=== PATIENT | female | born 1990 | race Caucasian/White ===

== ENCOUNTER → 2017-03-27 | Outpatient (CLI) | payer OTHER ==
--- NOTE | 2017-03-27 11:24 | US ---
EXAMINATION TYPE: US OB <= 14 wk fetus DATE OF EXAM: 03/27/2017 COMPARISON: NONE CLINICAL HISTORY: Z36 Confirm dates. EXAM PERFORMED: Transabdominal (TA) EXAM MEASUREMENTS: GESTATIONAL AGE / DATING Physician Established: not established Dates by LMP: uncertain lmp Dates by First Scan: no previous scan Dates by Current Scan for: ( 9 weeks/3 days) EDC: 10/27/2017 MATERNAL ANATOMY Uterus: 15.5 x 6.8 x 7.8cm, anteverted, wnl Right Ovary: 3.8 x 2.1 x 2.5cm, wnl Left Ovary: 4.0 x 2.1 x 2.0cm, wnl Post CDS / Adnexa: wnl Presence of free fluid: none seen GESTATION / SURVEY CRL: 2.6cm (9 weeks/3 days) MSD: wnl Yolk Sac (normal less than 6mm): 4mm Heart Rate: 169 bpm Rhythm: Normal IUP: Viable IUP IMPRESSION: Single viable intrauterine .
[2017-03-27 11:55] LABS: Glucose 78 mg/dL (74-99); Non-African American GFR(MDRD) >60 (>60 ml/min/1.73 sqM)
[2017-03-27 12:04] LABS: CH 26.8; CHCM 32.5; HCT 36.8 % (34.0-46.0); HDW 2.25; HGB 12.2 gm/dL (11.4-16.0); MCH 27.6 pg (25.0-35.0); MCHC 33.2 g/dL (31.0-37.0); RBC 4.43 m/uL (3.80-5.40); RDW 14.2 % (11.5-15.5); WBC 10.5 k/uL (3.8-10.6)
[2017-03-27 12:25] LABS: Hepatitis B Surface Ag Index 0.06
[2017-03-27 15:49] LABS: Treponemal Ab Non-Reactive (Non-Reactive)
== END | disposition home or self-care (01) ==
LOC: RADUSWWP 10:53
PROVIDERS: ATTEND Obstetrics & Gynecology
DX: Z36 Encounter for antenatal screening of mother (principal); O26.811 Pregnancy related exhaustion and fatigue, first trimester; Z3A.09 9 weeks gestation of pregnancy
CPT/HCPCS: 76801; 82565; 82947; 85027; 86762; 86780; 86850; 86900; 86901; 87340; 87390

== ENCOUNTER → 2017-05-22 | Outpatient (CLI) | payer OTHER ==
[2017-05-23 09:23] LABS: Alpha Fetoprotein 29.6 ng/mL; Alpha Fetoprotein (M.O.M) 0.64; B-HCG (M.O.M.) 0.46; Gestational Age (days) 0; Inhibin A (M.O.M.) 0.76; Interpretation SeeBelow; Maternal Age at EDD (Yrs) 25; Smoker No; Unconjugated Estriol (M.O.M.) 0.75
== END | disposition home or self-care (01) ==
LOC: LABWHC1 11:05
PROVIDERS: ATTEND Obstetrics & Gynecology
DX: Z34.82 Encounter for supervision of other normal pregnancy, second trimester (principal); Z3A.00 Weeks of gestation of pregnancy not specified
CPT/HCPCS: 36415; 82105; 82677; 84702; 86336

== ENCOUNTER 2017-07-20 21:38 | Observation (INO) | payer OTHER ==
[2017-07-20 22:49] LABS: Appearance,Urine Cloudy (Clear); Bacteria,Urine Occasional /hpf; Bilirubin,Urine Negative (Negative); Glucose,Urine (UA) Negative (Negative); Ketones,Urine Negative (Negative); Leukocyte Esterase,Urine Large (Negative); Mucus,Urine Rare /hpf; Nitrite,Urine Negative (Negative); PH, Urine 5.5 (5.0-8.0); Particle Count 5862; Protein,Urine 1+ (Negative); RBC,Urine 7 /hpf (0-5); Specific Gravity,Urine 1.015 (1.001-1.035); Squamous Epithelial Cell,Urine 1 /hpf (0-4); UA Billing (MACRO vs. MICRO) MICRO; Urobilinogen,Urine <2.0 mg/dL (<2.0); WBC,Urine 134 /hpf (0-5)
[2017-07-20] MEDS ORDERED: ACETAMINOPHEN TAB 500 MG TAB PO PRN (23:15)
[2017-07-21] MEDS ORDERED: cefTRIAXone IN SWFI 1,000 MG/10 ML SYRINGE IVP SCH
[2017-07-21 00:55] VITALS: TEMP 97.5
[2017-07-21 01:24] LABS: Basophils # (A) 0.1 k/uL (0-0.2); Basophils % (A) 0 %; CH 26.4; CHCM 31.3; Eosinophils # (A) 0.2 k/uL (0-0.7); Eosinophils % (A) 2 %; HCT 35.3 % (34.0-46.0); HDW 2.81; Hypochromasia Slight; Luc # (Auto) 0.13; Luc % (Auto) 1; Lymphocytes % (A) 15 %; MCH 26.6 pg (25.0-35.0); MCHC 31.2 g/dL (31.0-37.0); MCV 85.1 fL (80.0-100.0); Mean Platelet Volume 7.8; Monocytes # (A) 0.9 k/uL (0-1.0); Monocytes % (A) 7 %; Neutrophils # (A) 10.2 k/uL (1.3-7.7); Neutrophils % (A) 76 %; RBC 4.15 m/uL (3.80-5.40); RDW 14.9 % (11.5-15.5); WBC 13.5 k/uL (3.8-10.6); WBC (Perox) 14.82
[2017-07-21 03:41] VITALS: BP 102/54; PULSE 94; RESP 14
--- NOTE | 2017-07-21 13:00 | P.HPOB ---
History of Present Illness H&P Date: 07/21/17 Chief Complaint: iup 26 weeks UTI vs Pyelonephritis Patient is a 27-year-old arriving with complaint of back pain. Urinalysis was done showing white blood cells and clumps significant blood and early indicators for early pyelonephritis. She received 1 dose of IV Rocephin and will be switched over to by mouth meds tomorrow. We're admitting her for observational care due to potential early pyelonephritis white blood cell count was mildly elevated at 13.5 and my concern is that I need to make sure that she isn't on her way to getting much sicker so we'll keep her overnight and if everything remained stable plan to discharge her to home. She voices no complaints of fever chills nausea or vomiting or other signs or symptoms and she has other than just low back pain no other symptoms. Vital signs otherwise stable and she is afebrile. Heart regular, lungs clear, extremities without pain. No costovertebral angle tenderness at this time. Assessment intrauterine at 26 weeks with UTI versus early [place]. Plan IV antibiotics today with expectation for discharged home on long-term antibiotics. Due to this being her potentially second pyelonephritis infection during the she may need IV antibiotics prophylactically through the remainder of the . We will have her follow up with Dr. Villanueva for this moving forward Past Medical History Past Medical History: No Reported History History of Any Multi-Drug Resistant Organisms: None Reported Past Surgical History: Appendectomy Additional Past Surgical History / Comment(s): Appy Past Anesthesia/Blood Transfusion Reactions: No Reported Reaction Past Psychological History: No Psychological Hx Reported Smoking Status: Never smoker Past Alcohol Use History: None Reported Past Drug Use History: None Reported - Past Family History Mother Family Medical History: Hypertension Son(s) Family Medical History: Seizure Disorder Medications and Allergies Home Medications Medication Instructions Recorded Confirmed Type Acetaminophen-Codeine 300-30mg 1 - 2 each PO Q4HR PRN #30 tab 09/22/15 Rx [Tylenol w/codeine #3] Ibuprofen [Motrin] 600 mg PO Q6HR PRN #40 tab 09/22/15 Rx Cephalexin [Keflex] 500 mg PO Q6HR #40 cap 07/21/17 Rx Allergies Allergy/AdvReac Type Severity Reaction Status Date / Time Penicillins Allergy Rash/Hives Verified 07/20/17 21:39 amoxicillin [Amoxicillin] AdvReac Rash/Hives Verified 07/20/17 21:39 Exam Osteopathic Statement: *. No significant issues noted on an osteopathic structural exam other than those noted in the History and Physical/Consult. - Vital Signs Vital signs: Vital Signs Temp Pulse Resp BP Pulse Ox 07/21/17 03:41 97.5 F L 94 14 102/54 07/21/17 00:05 97.5 F L 81 16 109/57 100 07/20/17 23:00 96.7 F L 81 16 119/78 Intake and Output 07/20/17 07/21/17 07/21/17 22:59 06:59 14:59 Other: Voiding Method Toilet Weight 63.503 kg Results Result Diagrams: 07/21/17 00:01 Abnormal Lab Results - Last 24 Hours (Table) 07/20/17 07/21/17 Range/Units 22:22 00:01 WBC 13.5 H (3.8-10.6) k/uL Hgb 11.0 L (11.4-16.0) gm/dL Neutrophils # 10.2 H (1.3-7.7) k/uL Urine Appearance Cloudy H (Clear) Urine Protein 1+ H (Negative) Urine Blood Trace H (Negative) Ur Leukocyte Esterase Large H (Negative) Urine RBC 7 H (0-5) /hpf Urine WBC 134 H (0-5) /hpf Urine WBC Clumps Occasional H (None) /hpf Urine Bacteria Occasional H (None) /hpf Urine Mucus Rare H (None) /hpf Microbiology - Last 24 Hours (Table) 07/20/17 22:22 Urine Culture - Preliminary Urine,Clean Catch
--- NOTE | 2017-07-21 13:01 | P.DS ---
Providers Date of admission: 07/20/17 23:04 Expected date of discharge: 07/21/17 Attending physician: Salomón Villanueva Primary care physician: Stated None Hospital Course: Patient is doing very well this morning. She is still had no fevers chills, nausea or vomiting. We'll plan discharged home today with prescription for Keflex for the next 10 days 4 times a day. She will follow up with Dr. Anne next Saturday as the B holidays in between now and then for review of culture and sensitivity and to verify that she is on the correct antibiotic for long-term management. All the questions are answered for her at this time she is stable for discharge at this time. She is aware to return should she have any fevers, chills, nausea, vomiting or changes consistent with pyelonephritis symptoms. Patient Condition at Discharge: Good Plan - Discharge Summary New Discharge Prescriptions: New Cephalexin [Keflex] 500 mg PO Q6HR #40 cap No Action Acetaminophen-Codeine 300-30mg [Tylenol w/codeine #3] 1 - 2 each PO Q4HR PRN #30 tab PRN Reason: Mild Pain Ibuprofen [Motrin] 600 mg PO Q6HR PRN #40 tab PRN Reason: Mild Pain Or Fever >= 100.5 Discharge Medication List Acetaminophen-Codeine 300-30mg [Tylenol w/codeine #3] 1 - 2 each PO Q4HR PRN # 30 tab 09/22/15 [Rx] Ibuprofen [Motrin] 600 mg PO Q6HR PRN #40 tab 09/22/15 [Rx] Cephalexin [Keflex] 500 mg PO Q6HR #40 cap 07/21/17 [Rx] Follow up Appointment(s)/Referral(s): Salomón Villanueva MD [STAFF PHYSICIAN] - 1 Week
== END 2017-07-21 13:08 | disposition home or self-care (01) ==
LOC: FBPOP 21:38 → 4FBP 23:04
PROVIDERS: ADMIT Obstetrics & Gynecology; ATTEND Obstetrics & Gynecology
DX: O23.42 Unspecified infection of urinary tract in pregnancy, second trimester (principal); Z3A.26 26 weeks gestation of pregnancy
CPT/HCPCS: 96374; 85025; 81001; 87086; 87077; 87186; G0378 ×2; G0463; J0696; 99213

== ENCOUNTER 2017-10-16 06:01 | Inpatient (IN) | payer OTHER ==
[2017-10-16] MEDS ORDERED: LIDOCAINE 1% (PF) 10 MG/ML (30 ML SDV) SQ PRN (06:03)
[2017-10-16] MEDS ORDERED: OXYTOCIN 20 UNITS/1000 ML NS 1,000 ML IV SCH ×2 (06:03→11:53)
[2017-10-16] MEDS ORDERED: CARBOPROST TROMETHAMINE 250 MCG/ML 1 ML AMP IM PRN (06:03)
[2017-10-16] MEDS ORDERED: OXYTOCIN 10 UNIT/ML 1 ML VIAL IM PRN (06:03)
[2017-10-16] MEDS ORDERED: METHYLERGONOVINE 0.2 MG/ML 1 ML AMP IM PRN (06:03)
[2017-10-16] MEDS ORDERED: TERBUTALINE 1 MG/ML VIAL SQ PRN (06:03)
--- NOTE | 2017-10-16 06:06 | P.HPOB ---
History of Present Illness H&P Date: 10/16/17 Chief Complaint: Patient is requesting induction of labor. This patient is a pleasant 27-year-old 3 para 2 female estimated date of confinement 10/23/2017 estimated gestational age 39 weeks who presents to labor and delivery for requested induction of labor. 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 Patient is uncomfortable at this time request delivery. Review of Systems Gastrointestinal: Reports heartburn Genitourinary: Reports Menstruation: Reports amenorrhea Past Medical History Past Medical History: No Reported History History of Any Multi-Drug Resistant Organisms: None Reported Past Surgical History: Appendectomy Additional Past Surgical History / Comment(s): Appy Past Anesthesia/Blood Transfusion Reactions: No Reported Reaction Past Psychological History: No Psychological Hx Reported Smoking Status: Never smoker Past Alcohol Use History: None Reported Past Drug Use History: None Reported - Past Family History Mother Family Medical History: Hypertension Son(s) Family Medical History: Seizure Disorder Medications and Allergies Home Medications Medication Instructions Recorded Confirmed Type Acetaminophen-Codeine 300-30mg 1 - 2 each PO Q4HR PRN #30 tab 09/22/15 Rx [Tylenol w/codeine #3] Ibuprofen [Motrin] 600 mg PO Q6HR PRN #40 tab 09/22/15 Rx Cephalexin [Keflex] 500 mg PO Q6HR #40 cap 07/21/17 Rx Allergies Allergy/AdvReac Type Severity Reaction Status Date / Time Penicillins Allergy Rash/Hives Verified 07/20/17 21:39 amoxicillin [Amoxicillin] AdvReac Rash/Hives Verified 07/20/17 21:39 Exam - OBG Physical Exam Abdomen: bowel sounds normal, no diffuse tenderness, no bruit present, no guarding noted, no hepatomegaly, no splenomegaly, no mass Vulva: both: normal Cervix: no lesion (Cervix in the office is 2 cm dilated and soft.), no discharge Uterus: enlarged (Fundal height 38 cm.) Results blood work shows she is O-, rubella immune, RPR nonreactive, HIV nonreactive, hepatitis B negative, quad screen was negative, ultrasounds have been normal, Glucola was normal. Patient did receive RhoGAM. Patient does have some mild anemia and was 9.9 at the time of her Glucola was on iron. Group B strep was negative Assessment and Plan Assessment: This is a pleasant 27-year-old 3 para 2 female 39 weeks gestation who is admitted to labor and delivery for requested induction of labor. Plan is induction of labor and anticipate vaginal delivery. (1) Elective induction of labor planned Current Visit: No Status: Acute Code(s): ATG5541 - SNOMED Code(s): 268553522 (2) Third trimester Current Visit: No Status: Acute Code(s): Z33.1 - STATE, INCIDENTAL SNOMED Code(s): 46595800
[2017-10-16 06:11] VITALS: BMI 26.6
[2017-10-16] MEDS: LACTATED RINGERS 1,000 ML IV SCH ×2 (06:17→10:32)
[2017-10-16 06:49] LABS: Basophils % (A) 1 %; Eosinophils # (A) 0.1 k/uL (0-0.7); Eosinophils % (A) 1 %; HCT 29.6 % (34.0-46.0); HGB 9.1 gm/dL (11.4-16.0); Hypochromasia Marked; Lymphocytes % (A) 24 %; MCH 23.5 pg (25.0-35.0); MCHC 30.7 g/dL (31.0-37.0); MCV 76.6 fL (80.0-100.0); Mean Platelet Volume 7.8; Microcytosis Slight; Monocytes # (A) 0.5 k/uL (0-1.0); Monocytes % (A) 5 %; Neutrophils # (A) 5.6 k/uL (1.3-7.7); Neutrophils % (A) 66 %; Platelet Count 244 k/uL (150-450); Poikilocytosis Slight; RBC 3.87 m/uL (3.80-5.40); RDW 15.4 % (11.5-15.5); WBC 8.5 k/uL (3.8-10.6)
[2017-10-16] MEDS ORDERED: BUPIVACAINE (PF) 0.25% 30 ML VIAL ONE (10:16)
[2017-10-16] MEDS ORDERED: SODIUM CHLORIDE 0.9% 100 ML BAG ONE (10:16)
[2017-10-16] MEDS ORDERED: fentaNYL (PF) 50 MCG/ML 5 ML AMP ONE (10:16)
[2017-10-16] MEDS ORDERED: BUPIVACAINE (PF) 0.25% 25 ML, fentaNYL (PF) 200 MCG in SODIUM CHLORIDE 0.9% 71 ML EPIDURAL ONE (10:33)
--- NOTE | 2017-10-16 11:52 | P.PROBDLV ---
Vaginal Delivery Note - . Vaginal Delivery Note: Normal vaginal delivery viable male infant Apgars 9 and 9 delivery time is 1133 hrs. Please see dictated H&P for intimate details of this patient's admission. Brief summary this is a pleasant 27-year-old 3 para 2 female 39-0/7 weeks gestation who is admitted to labor and delivery for elective induction of labor. Patient is admitted and is 3 cm dilated and has artificial rupture membranes for clear fluid. Labor is then induced with Pitocin per protocol. Labor progresses normally and she does get an epidural for pain control. Patient thereafter goes quickly to complete pushes the head to the perineum. Posterior perineum was then supported and we have controlled delivery of the infant's head over the intact perineum. Mouth and nares are bulb suctioned. There is a tight nuchal cord which is doubly clamped cut and then reduced. With gentle downward traction we have delivery the anterior and posterior shoulder and rest this 's body. This is a vigorous viable male Apgars are 9 and 9 delivery time is 1133 hrs. has spontaneous respirations and good cry and grossly appears normal. After delivery of the the placenta is spontaneously delivered intact. Cord blood was obtained for Rh status. The umbilical cord appeared to be 3 vessels. Inspection of perineum shows a first-degree posterior laceration which is repaired with 3-0 Vicryl usual fashion excellent reapproximation is noted. Estimated blood loss is 100 mL. There are no complications. All counts are correct 3. and mother are stable delivery room.
[2017-10-16] MEDS ORDERED: diphenhydrAMINE 25 MG CAP PO PRN (11:53)
[2017-10-16] MEDS ORDERED: SIMETHICONE 80 MG CHEWABLE PO PRN (11:53)
[2017-10-16] MEDS ORDERED: HYDROCORTISONE 2.5% RECTAL CREAM 30 GM TUBE RECTAL PRN (11:53)
[2017-10-16] MEDS ORDERED: BISACODYL 10 MG SUPP RECTAL PRN (11:53)
[2017-10-16] MEDS ORDERED: ZOLPIDEM 5 MG TAB PO PRN (11:53)
[2017-10-16] MEDS ORDERED: WITCH HAZEL 1 EACH MED..PAD TOPICAL PRN (11:53)
[2017-10-16] MEDS ORDERED: BENZOCAINE/MENTHOL SPRAY 1 GM/SPRAY AEROSOL TOPICAL PRN (11:53)
[2017-10-16] MEDS ORDERED: diphenhydrAMINE 50 MG/ML 1 ML VIAL IVP PRN (11:53)
[2017-10-16] MEDS ORDERED: ACETAMINOPHEN TAB 325 MG TAB PO PRN (11:53)
[2017-10-16] MEDS ORDERED: Rhogam IMMUNE GLOBULIN 1,500 UNIT/1 ML IM ONE (11:53)
[2017-10-16] MEDS ORDERED: LANOLIN CREAM 5 GM TUBE TOPICAL PRN (11:53)
[2017-10-16] MEDS ORDERED: DIPH,PERTUS(ACELL)TETVAC-LF 0.5 ML VIAL IM ONE (11:55)
[2017-10-16] MEDS: IRON AG/C/B12/CA/SUC.ACID/STOM 1 EACH TAB PO SCH (12:48)
[2017-10-16] MEDS: SENNOSIDES-DOCUSATE SODIUM 1 EACH TAB PO SCH ×2 (12:48→20:52)
[2017-10-16] MEDS: IBUPROFEN 600 MG TAB PO PRN ×2 (13:32→20:51)
[2017-10-16 21:38] VITALS: RESP 18
--- NOTE | 2017-10-17 06:35 | P.PNOBGVD ---
Subjective - Subjective Patient reports: Reports appetite normal, Reports voiding normally, Reports pain well controlled, Reports ambulating normally : doing well Objective - Latest Vital Signs Latest vital signs: Vital Signs Temp Pulse Resp BP Pulse Ox 10/17/17 04:00 98.0 F 80 18 113/68 100 10/17/17 00:00 98.2 F 82 18 121/74 100 10/16/17 20:00 98.1 F 72 18 117/65 100 10/16/17 16:00 97.8 F 105 H 20 123/64 99 10/16/17 13:51 98 18 119/77 98 10/16/17 13:21 71 17 119/77 98 10/16/17 12:51 98.2 F 78 18 114/64 10/16/17 12:36 82 17 119/57 10/16/17 12:21 85 18 124/62 10/16/17 12:06 98.2 F 91 18 111/57 10/16/17 11:51 98 18 114/58 98 Intake and Output 10/16/17 10/16/17 10/17/17 14:59 22:59 06:59 Other: # Voids 1 - Exam Lungs: bilateral: normal Chest: Normal S1, Normal S2 Extremities: Present: normal Abdomen: Present: normal appearance, soft Uterus: Present: normal, firm - Labs Labs: Abnormal Lab Results - Last 24 Hours (Table) 10/16/17 Range/Units 06:28 Hgb 9.1 L (11.4-16.0) gm/dL Hct 29.6 L (34.0-46.0) % MCV 76.6 L (80.0-100.0) fL MCH 23.5 L (25.0-35.0) pg MCHC 30.7 L (31.0-37.0) g/dL Assessment and Plan Assessment: day #1. Patient is resting without complaints and wishes to go home. Vital signs are stable she is afebrile. Uterus is firm nontender she's having normal lochia. My impression this is a normal course. Plan is to continue routine care discharge home later today. (1) Elective induction of labor planned Current Visit: No Status: Acute Code(s): VLR1725 - SNOMED Code(s): 755488268 (2) Third trimester Current Visit: No Status: Acute Code(s): Z33.1 - STATE, INCIDENTAL SNOMED Code(s): 27546150
--- NOTE | 2017-10-17 06:37 | P.DS ---
Providers Date of admission: 10/16/17 06:01 Expected date of discharge: 10/17/17 Attending physician: Salomón Villanueva Primary care physician: Prashanth Gonzales - Discharge Diagnosis(es) (1) Elective induction of labor planned Current Visit: No Status: Acute (2) Third trimester Current Visit: No Status: Acute Hospital Course: Please see dictated H&P for intimate details of this patient's admission. Brief summary this is a pleasant 27-year-old 3 para 2 female 39 weeks gestation admitted to labor and delivery for requested induction of labor. Patient is admitted has uncomplicated induction of labor quickly goes on have vaginal delivery viable male . The see dictated delivery note. day 1 patient's felt be stable for discharge home follow up with me in 6 weeks. Procedures: Induction of labor and normal spontaneous vaginal delivery Patient Condition at Discharge: Good Plan - Discharge Summary New Discharge Prescriptions: New Ibuprofen [Motrin] 600 mg PO Q6HR PRN #40 tab PRN Reason: Mild Pain Or Fever >= 100.5 No Action Acyclovir [Zovirax] 200 mg PO QID Discharge Medication List Acyclovir [Zovirax] 200 mg PO QID 10/16/17 [History] Ibuprofen [Motrin] 600 mg PO Q6HR PRN #40 tab 10/17/17 [Rx] Follow up Appointment(s)/Referral(s): Salomón Villanueva MD [STAFF PHYSICIAN] - 11/25/17 11:30 am Patient Instructions/Handouts: Vaginal Delivery (DC) Activity/Diet/Wound Care/Special Instructions: No intercourse or anything per vagina for 6 weeks. Please call if any fever, chills, excessive vaginal bleeding, and/or abdominal pain. Discharge Disposition: HOME SELF-CARE
[2017-10-17] MEDS: SENNOSIDES-DOCUSATE SODIUM 1 EACH TAB PO SCH (08:47)
[2017-10-17] MEDS: IRON AG/C/B12/CA/SUC.ACID/STOM 1 EACH TAB PO SCH (08:48)
[2017-10-17 09:10] VITALS: BP 114/79; PULSE 92; TEMP 97.7
== END 2017-10-17 12:55 | disposition home or self-care (01) | DRG 775 ==
LOC: 4FBP 06:01
PROVIDERS: ADMIT Obstetrics & Gynecology; ATTEND Obstetrics & Gynecology
PROC: 10E0XZZ Delivery of Products of Conception, External Approach (ICD-10-PCS; principal; 2017-10-16)
PROC: 0HQ9XZZ Repair Perineum Skin, External Approach (ICD-10-PCS; 2017-10-16)
PROC: 3E033VJ Introduction of Other Hormone into Peripheral Vein, Percutaneous Approach (ICD-10-PCS; 2017-10-16)
PROC: 10907ZC Drainage of Amniotic Fluid, Therapeutic from Products of Conception, Via Natural or Artificial Opening (ICD-10-PCS; 2017-10-16)
DX: O69.1XX0 Labor and delivery complicated by cord around neck, with compression, not applicable or unspecified (principal); O70.0 First degree perineal laceration during delivery; Z37.0 Single live birth; Z3A.39 39 weeks gestation of pregnancy; Z82.0 Family history of epilepsy and other diseases of the nervous system; Z82.49 Family history of ischemic heart disease and other diseases of the circulatory system; Z88.0 Allergy status to penicillin; Z86.19 Personal history of other infectious and parasitic diseases
CPT/HCPCS: 85025; 85461; 88307; 90715

== ENCOUNTER → 2019-05-29 | Outpatient (CLI) | payer OTHER ==
[2019-05-29 16:01] LABS: HCT 34.9 % (34.0-46.0); HGB 11.5 gm/dL (11.4-16.0); MCH 25.9 pg (25.0-35.0); MCHC 32.8 g/dL (31.0-37.0); MCV 78.9 fL (80.0-100.0); Mean Platelet Volume 6.2; Platelet Count 297 k/uL (150-450); RBC 4.42 m/uL (3.80-5.40); RDW 15.2 % (11.5-15.5); WBC 12.4 k/uL (3.8-10.6)
--- NOTE | 2019-05-29 16:01 | US ---
EXAMINATION TYPE: Transabdominal DATE OF EXAM: 05/29/2019 3:26 PM COMPARISON: NONE CLINICAL HISTORY: Z36 confirm dates. confirm dates EXAM PERFORMED: Transabdominal (TA) EXAM MEASUREMENTS: GESTATIONAL AGE / DATING Physician Established: Not yet established Dates by LMP: (11 weeks/4 days) EDC: 12/14/19 Dates by First Scan: No previous this is first scan Dates by Current Scan for: (11 weeks/2 days) EDC: 12/16/19 MATERNAL ANATOMY Uterus: 14.5 x 5.9 x 10.0cm Right Ovary: 3.2 x 1.9 x 1.7cm Left Ovary: 3.1 x 1.3 x 1.4cm Post CDS / Adnexa: appears wnl Presence of free fluid: no Presence of corpus luteal cyst: yes, complex area right ovary = 1.3 x 1.7 x 1.2cm GESTATION / SURVEY CRL: 4.4cm (11 weeks/2 days) Yolk Sac (normal less than 6mm): 0.2cm Heart Rate: 156 bpm Rhythm: Normal IUP: Viable IUP Nuchal Translucency 10-14wks (normal less than 3mm): 0.2cm Date of LMP: 03/09/19 Beta HcG (if available): Not available at this time Single viable IUP 11wks/2days with SANTIAGO of 12/16/19. Probable corpus luteum right ovary IMPRESSION: Single intrauterine gestation estimated at 11 weeks 2 days gestation based on the crown-rump length. Cardiac activity measures 156 bpm.
[2019-05-29 16:09] LABS: African American GFR (CKD) >90 (>60 ml/min/1.73 sqM); Glucose 72 mg/dL (74-99)
[2019-05-30 11:32] LABS: Hepatitis B Surface Antigen Non-Reactive (Non-Reactive)
== END | disposition home or self-care (01) ==
LOC: RADUSWWP 14:53
PROVIDERS: ATTEND Obstetrics & Gynecology
DX: Z36.9 Encounter for antenatal screening, unspecified (principal); Z34.81 Encounter for supervision of other normal pregnancy, first trimester
CPT/HCPCS: 76801; 76813; 82565; 82947; 85027; 86762; 86780; 86850; 86900; 86901; 87340

== ENCOUNTER 2019-07-06 12:30 | Emergency (ER) | payer OTHER ==
[2019-07-06 12:48] VITALS: RESP 18
[2019-07-06] MEDS ORDERED: SODIUM CHLORIDE 0.9% 1,000 ML IV STA (13:04)
[2019-07-06] MEDS ORDERED: ACETAMINOPHEN TAB 325 MG TAB PO STA (13:05)
--- NOTE | 2019-07-06 13:22 | ED ---
General Adult HPI - General Chief complaint: Urogenital Stated complaint: body aches/vomiting/17 wks preg Time Seen by Provider: 07/06/19 12:49 Source: patient, RN notes reviewed Mode of arrival: ambulatory Limitations: no limitations - History of Present Illness Initial comments: 29-year-old female presents emergency Department chief complaint of left flank pain. Patient states that she believes that she has a urinary tract infection or possible kidney infection. Patient states that she normally does not have any dysuria when she went of these infections. Patient is concerned as she is 17 weeks . Patient's [employer]OR[employer] MASTER is Dr. Villanueva. Patient has A0. Denies any vaginal bleeding or vaginal discharge. She reports no fevers or chills he states that there is pain and achiness in the left flank region patient states that she's had normal bowel movements. Did have 1 episode of nausea and vomiting - Related Data Previous Rx's Medication Instructions Recorded Cephalexin [Keflex] 500 mg PO Q8HR #21 cap 07/06/19 Allergies Allergy/AdvReac Type Severity Reaction Status Date / Time amoxicillin [Amoxicillin] Allergy Rash/Hives Verified 07/06/19 13:20 Penicillins Allergy Rash/Hives Verified 07/06/19 13:20 Review of Systems ROS Statement: Those systems with pertinent positive or pertinent negative responses have been documented in the HPI. ROS Other: All systems not noted in ROS Statement are negative. Past Medical History Past Medical History: No Reported History History of Any Multi-Drug Resistant Organisms: None Reported Past Surgical History: Appendectomy Additional Past Surgical History / Comment(s): Appy Past Anesthesia/Blood Transfusion Reactions: No Reported Reaction Past Psychological History: No Psychological Hx Reported Smoking Status: Never smoker Past Alcohol Use History: None Reported Past Drug Use History: None Reported - Past Family History Mother Family Medical History: Hypertension Son(s) Family Medical History: Seizure Disorder General Exam Limitations: no limitations General appearance: alert, in no apparent distress Head exam: Present: atraumatic, normocephalic, normal inspection Neck exam: Present: normal inspection. Absent: tenderness, meningismus, lymphadenopathy Respiratory exam: Present: normal lung sounds bilaterally. Absent: respiratory distress, wheezes, rales, rhonchi, stridor Cardiovascular Exam: Present: normal rhythm, tachycardia, normal heart sounds. Absent: systolic murmur, diastolic murmur, rubs, gallop, clicks GI/Abdominal exam: Present: soft, normal bowel sounds. Absent: distended, tenderness, guarding, rebound, rigid Back exam: Present: CVA tenderness (R). Absent: CVA tenderness (L) Neurological exam: Present: alert, oriented X3 Skin exam: Present: warm, dry, intact, normal color. Absent: rash Course Vital Signs 07/06/19 07/06/19 12:44 14:50 Temperature 98.5 F Pulse Rate 111 H 105 H Respiratory 18 18 Rate Blood Pressure 104/63 108/68 O2 Sat by Pulse 100 97 Oximetry Medical Decision Making - Medical Decision Making Patient is found to be dehydrated emergency department she has a few WBCs and urinalysis will be treated for possible urinary tract infection urine was cultured, patient was well hydrated 2 L of fluid she is tolerating oral intake with no evidence of nausea or vomiting at this time. Patient has no evidence of pyelonephritis, ultrasound is unremarkable. Patient was given Rocephin will be discharged on Keflex. - Lab Data Result diagrams: 07/06/19 14:00 07/06/19 14:00 Lab Results 07/06/19 07/06/19 07/06/19 Range/Units 14:00 14:00 14:00 WBC 8.2 (3.8-10.6) k/uL RBC 4.27 (3.80-5.40) m/uL Hgb 11.5 (11.4-16.0) gm/dL Hct 34.4 (34.0-46.0) % MCV 80.5 (80.0-100.0) fL MCH 27.0 (25.0-35.0) pg MCHC 33.6 (31.0-37.0) g/dL RDW 14.9 (11.5-15.5) % Plt Count 239 (150-450) k/uL Neutrophils % 90 % Lymphocytes % 5 % Monocytes % 3 % Eosinophils % 0 % Basophils % 1 % Neutrophils # 7.4 (1.3-7.7) k/uL Lymphocytes # 0.4 L (1.0-4.8) k/uL Monocytes # 0.3 (0-1.0) k/uL Eosinophils # 0.0 (0-0.7) k/uL Basophils # 0.1 (0-0.2) k/uL Sodium 133 L (137-145) mmol/L Potassium 3.9 (3.5-5.1) mmol/L Chloride 105 (98-107) mmol/L Carbon Dioxide 20 L (22-30) mmol/L Anion Gap 8 mmol/L BUN 8 (7-17) mg/dL Creatinine 0.55 (0.52-1.04) mg/dL Est GFR (CKD-EPI)AfAm >90 (>60 ml/min/1.73 sqM) Est GFR (CKD-EPI)NonAf >90 (>60 ml/min/1.73 sqM) Glucose 83 (74-99) mg/dL Plasma Lactic Acid [place] 0.9 (0.7-2.0) mmol/L Calcium 8.8 (8.4-10.2) mg/dL Total Bilirubin 0.6 (0.2-1.3) mg/dL AST 23 (14-36) U/L ALT 22 (9-52) U/L Alkaline Phosphatase 58 (38-126) U/L Total Protein 6.8 (6.3-8.2) g/dL Albumin 3.7 (3.5-5.0) g/dL Amylase 80 (30-110) U/L Lipase 41 (23-300) U/L Urine Color Urine Appearance (Clear) Urine pH (5.0-8.0) Ur Specific [place] (1.001-1.035) Urine Protein (Negative) Urine Glucose (UA) (Negative) Urine Ketones (Negative) Urine Blood (Negative) Urine Nitrite (Negative) Urine Bilirubin (Negative) Urine Urobilinogen (<2.0) mg/dL Ur Leukocyte Esterase (Negative) Urine RBC (0-5) /hpf Urine WBC (0-5) /hpf Ur Squamous Epith Cells (0-4) /hpf Urine Mucus (None) /hpf 07/06/19 Range/Units 14:00 WBC (3.8-10.6) k/uL RBC (3.80-5.40) m/uL Hgb (11.4-16.0) gm/dL Hct (34.0-46.0) % MCV (80.0-100.0) fL MCH (25.0-35.0) pg MCHC (31.0-37.0) g/dL RDW (11.5-15.5) % Plt Count (150-450) k/uL Neutrophils % % Lymphocytes % % Monocytes % % Eosinophils % % Basophils % % Neutrophils # (1.3-7.7) k/uL Lymphocytes # (1.0-4.8) k/uL Monocytes # (0-1.0) k/uL Eosinophils # (0-0.7) k/uL Basophils # (0-0.2) k/uL Sodium (137-145) mmol/L Potassium (3.5-5.1) mmol/L Chloride (98-107) mmol/L Carbon Dioxide (22-30) mmol/L Anion Gap mmol/L BUN (7-17) mg/dL Creatinine (0.52-1.04) mg/dL Est GFR (CKD-EPI)AfAm (>60 ml/min/1.73 sqM) Est GFR (CKD-EPI)NonAf (>60 ml/min/1.73 sqM) Glucose (74-99) mg/dL Plasma Lactic Acid [place] (0.7-2.0) mmol/L Calcium (8.4-10.2) mg/dL Total Bilirubin (0.2-1.3) mg/dL AST (14-36) U/L ALT (9-52) U/L Alkaline Phosphatase (38-126) U/L Total Protein (6.3-8.2) g/dL Albumin (3.5-5.0) g/dL Amylase (30-110) U/L Lipase (23-300) U/L Urine Color Yellow Urine Appearance Cloudy H (Clear) Urine pH 5.5 (5.0-8.0) Ur Specific [place] 1.026 (1.001-1.035) Urine Protein 1+ H (Negative) Urine Glucose (UA) Negative (Negative) Urine Ketones 4+ H (Negative) Urine Blood Negative (Negative) Urine Nitrite Negative (Negative) Urine Bilirubin Negative (Negative) Urine Urobilinogen <2.0 (<2.0) mg/dL Ur Leukocyte Esterase Large H (Negative) Urine RBC 1 (0-5) /hpf Urine WBC 9 H (0-5) /hpf Ur Squamous Epith Cells 20 H (0-4) /hpf Urine Mucus Many H (None) /hpf Disposition Clinical Impression: Dehydration, UTI in Disposition: HOME SELF-CARE Condition: Stable Instructions (If sedation given, give patient instructions): Urinary Tract Infection in (ED) Additional Instructions: Please return to the Emergency Department if symptoms worsen or any other concerns. Prescriptions: Cephalexin [Keflex] 500 mg PO Q8HR #21 cap Is patient prescribed a controlled substance at d/c from ED?: No Referrals: Prashanth Gonzales DO [Primary Care Provider] - 1-2 days Time of Disposition: 15:49
[2019-07-06 14:30] LABS: Basophils # (A) 0.1 k/uL (0-0.2); Basophils % (A) 1 %; Eosinophils % (A) 0 %; HCT 34.4 % (34.0-46.0); HGB 11.5 gm/dL (11.4-16.0); Lymphocytes # (A) 0.4 k/uL (1.0-4.8); Lymphocytes % (A) 5 %; MCHC 33.6 g/dL (31.0-37.0); MCV 80.5 fL (80.0-100.0); Mean Platelet Volume 5.9; Monocytes # (A) 0.3 k/uL (0-1.0); Monocytes % (A) 3 %; Neutrophils # (A) 7.4 k/uL (1.3-7.7); Neutrophils % (A) 90 %; Platelet Count 239 k/uL (150-450); RBC 4.27 m/uL (3.80-5.40); RDW 14.9 % (11.5-15.5); WBC 8.2 k/uL (3.8-10.6)
[2019-07-06 14:37] LABS: ALT 22 U/L (9-52); AST 23 U/L (14-36); African American GFR (CKD) >90 (>60 ml/min/1.73 sqM); Albumin 3.7 g/dL (3.5-5.0); Alkaline Phosphatase 58 U/L (38-126); Amylase 80 U/L (30-110); Anion Gap 8 mmol/L; Appearance,Urine Cloudy (Clear); Bilirubin,Urine Negative (Negative); Blood Urea Nitrogen 8 mg/dL (7-17); Blood,Urine Negative (Negative); Calcium 8.8 mg/dL (8.4-10.2); Carbon Dioxide 20 mmol/L (22-30); Chloride 105 mmol/L (98-107); Color,Urine Yellow; Glucose 83 mg/dL (74-99); Glucose,Urine (UA) Negative (Negative); Ketones,Urine 4+ (Negative); Leukocyte Esterase,Urine Large (Negative); Mucus,Urine Many /hpf; Nitrite,Urine Negative (Negative); PH, Urine 5.5 (5.0-8.0); Potassium 3.9 mmol/L (3.5-5.1); Protein,Urine 1+ (Negative); RBC,Urine 1 /hpf (0-5); Sodium 133 mmol/L (137-145); Specific Gravity,Urine 1.026 (1.001-1.035); Squamous Epithelial Cell,Urine 20 /hpf (0-4); Total Bilirubin 0.6 mg/dL (0.2-1.3); Total Protein 6.8 g/dL (6.3-8.2); Urobilinogen,Urine <2.0 mg/dL (<2.0)
--- NOTE | 2019-07-06 14:43 | US ---
EXAMINATION TYPE: US kidneys/renal and bladder DATE OF EXAM: 07/06/2019 COMPARISON: None CLINICAL HISTORY: 29-year-old female left flank pain. EC patient with intermittent left flank pain ra diating to left shoulder x 2 days, and prior history of renal infections during ; f ever, N&V TECHNIQUE: Multiple sonographic images of the kidneys and bladder are obtained. FINDINGS: EXAM MEASUREMENTS: Right Kidney: 11.7 x 5.0 x 3.7 cm Left Kidney: 10.2 x 5.5 x 4.6 cm Post Void Residual Volume: not assessed on EC patient Right Kidney: No hydronephrosis. Left Kidney: No hydronephrosis. Bladder: not fully distended (patient reports being dehydrated) Bilateral Jets seen: not seen within 3 minute observation IMPRESSION: 1. No hydronephrosis. 2. Underdistention of the bladder limits its evaluation. The patient reports being dehydrated. 3. Neither ureteral jet is seen during the course of the exam. Correlate with patient's BUN/creatinin e.
--- NOTE | 2019-07-06 14:44 | US ---
EXAMINATION TYPE: US OB limited DATE OF EXAM: 07/06/2019 COMPARISON: NONE CLINICAL HISTORY: heart rate. Intermittent severe left flank pain radiating to left shoulder x 2 days; prior renal infections with pregnancies; EXAM PERFORMED: Transabdominal (TA) GESTATIONAL AGE / DATING Physician Established: (17 weeks/0 days) EDC: 12/14/2019 No growth was performed on today?s study per ordering physician SURVEY PLACENTA: fundal posterior PREVIA: no previa Ultrasound evidence of abruption?NO NIR: 10.7 cm Normal CERVICAL LENGTH (transabdominal: norm > 3.0cm): 4.5 cm PRESENTATION: Vertex LIE: Longitudinal HEART RATE: 167 bpm RHYTHM: Normal Bilateral ovaries are seen with color flow assessed in left ovary and color flow patency is demonstra demetrius. IMPRESSION: Single live intrauterine has a sonographic age of 17 weeks and 0 days and catarino mated date of delivery of 12/14/2019. No complicating process seen at this time.
[2019-07-06] MEDS ORDERED: SODIUM CHLORIDE 0.9% 1,000 ML IV ONE (15:02)
[2019-07-06] MEDS ORDERED: cefTRIAXone IN SWFI 1,000 MG/10 ML SYRINGE IVP STA (15:48)
[2019-07-06 16:03] VITALS: BP 97/56; PULSE 91; TEMP 97.8
== END 2019-07-06 16:34 | disposition home or self-care (01) ==
LOC: EC 12:30
DX: O99.282 Endocrine, nutritional and metabolic diseases complicating pregnancy, second trimester (principal); E86.0 Dehydration; O23.42 Unspecified infection of urinary tract in pregnancy, second trimester; O21.9 Vomiting of pregnancy, unspecified; O99.89 Other specified diseases and conditions complicating pregnancy, childbirth and the puerperium; R00.0 Tachycardia, unspecified; Z88.0 Allergy status to penicillin; Z90.49 Acquired absence of other specified parts of digestive tract; Z82.49 Family history of ischemic heart disease and other diseases of the circulatory system; Z3A.17 17 weeks gestation of pregnancy
CPT/HCPCS: 36415; 80053; 82150; 83605; 83690; 85025; 81001; 76815; 76770; 99284; 96374; 96361 ×2; J0696

== ENCOUNTER 2019-10-29 11:08 | Outpatient (CLI) | payer OTHER ==
[2019-10-29 13:50] VITALS: BP 117/63; PULSE 82; RESP 16; TEMP 97.9
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
== END 2019-10-29 13:42 | disposition home or self-care (01) ==
LOC: FBPOP 11:08
PROVIDERS: ATTEND Obstetrics & Gynecology
DX: O71.9 Obstetric trauma, unspecified (principal); Z3A.33 33 weeks gestation of pregnancy
CPT/HCPCS: 59025; G0463; 99213

== ENCOUNTER 2019-11-16 | Outpatient (CLI) | payer OTHER | END 2019-11-16 13:35 | disposition home or self-care (01) | CPT/HCPCS: 59025; G0463; 99213 ==

== ENCOUNTER 2019-11-25 05:35 | Inpatient (IN) | payer OTHER ==
--- NOTE | 2019-11-24 13:05 | P.HPOB ---
History of Present Illness H&P Date: 11/24/19 Chief Complaint: IUGR for induction. This patient is a pleasant 29 yr old female EDC 12/14/2019 estimated gestational age 37 1/7 weeks weeks who presents to L&D for induction of labor secondary to severe IUGR. Patient was referred to [facility] when an ultrasound at 35 weeks showed poor growth. Patient was seen by [facility] (11/11) and had an ultrasound that showed EFW 4#2oz (4%) with normal NIR and dopplers. They recommended delivery between 37 and 38 weeks due to severe IUGR. Patient has otherwise had an uncomplicated . She has had normal antepartum testing as well. Review of Systems Genitourinary: Reports Menstruation: Reports amenorrhea Past Medical History Past Medical History: No Reported History Additional Past Medical History / Comment(s): 3 previous vaginal deliveries. History of Any Multi-Drug Resistant Organisms: None Reported Past Surgical History: Appendectomy Additional Past Surgical History / Comment(s): Appy Past Anesthesia/Blood Transfusion Reactions: No Reported Reaction Past Psychological History: No Psychological Hx Reported Smoking Status: Never smoker Past Alcohol Use History: None Reported Past Drug Use History: None Reported - Past Family History Mother Family Medical History: Hypertension Son(s) Family Medical History: Seizure Disorder Medications and Allergies Home Medications Medication Instructions Recorded Confirmed Type Lba-Idev-Vbcew Acid 10/29/19 History [-U Capsule (formulary)] Allergies Allergy/AdvReac Type Severity Reaction Status Date / Time amoxicillin [Amoxicillin] Allergy Rash/Hives Verified 11/16/19 13:08 Penicillins Allergy Rash/Hives Verified 11/16/19 13:08 Exam - OBG Physical Exam Vulva: both: normal Vagina: normal moisture, no discharge Cervix: Cerivx 2cm/uneffaced in the office. Cervix: no lesion, no discharge Uterus: enlarged (Fundal height was 35 cm in the office.) Results blood work: O negative (Rhogam 09/22), Rubella Immune, RPR-HepB n egative, GBS positive, Glucola 101. Assessment and Plan Assessment: This is a pleasant 29 yr female 37 1/7 weeks gestation with known severe IUGR for induction of labor. She also has a positive GBS culture. Plan is prophylactic antibiotics and induction of labor. Matilde and Maru have discussed the induction process. Anticipate vaginal delivery. Will alert pediatric staff in regards to IUGR. (1) 37 weeks gestation of Status: Acute Code(s): Z3A.37 - 37 WEEKS GESTATION OF SNOMED Code(s): 82412990 (2) IUGR (intrauterine growth restriction) Status: Acute Code(s): UDS4243 - SNOMED Code(s): 46658771 (3) Positive GBS test Status: Acute Code(s): B95.1 - STREPTOCOCCUS, GROUP B, CAUSING DISEASES CLASSD [facility] SNOMED Code(s): 752445871
[2019-11-25] MEDS ORDERED: CLINDAMYCIN 900 MG in DEXTROSE 5% IN WATER 50 ML IVPB SCH ×2 (05:51)
[2019-11-25] MEDS ORDERED: OXYTOCIN 30 UNITS/500 ML NS 30 UNIT in SALINE 1 500ML.BAG IV SCH (05:51)
[2019-11-25] MEDS ORDERED: OXYTOCIN 10 UNIT/ML 1 ML VIAL IM PRN (05:51)
[2019-11-25] MEDS ORDERED: CARBOPROST TROMETHAMINE 250 MCG/ML 1 ML AMP IM PRN (05:51)
[2019-11-25] MEDS ORDERED: METHYLERGONOVINE 0.2 MG/ML 1 ML AMP IM PRN (05:51)
[2019-11-25] MEDS ORDERED: TERBUTALINE 1 MG/ML VIAL SQ PRN (05:51)
[2019-11-25] MEDS ORDERED: LIDOCAINE 0.5% (PF) 5 MG/ML (50 ML SDV) SQ PRN (05:51)
[2019-11-25] MEDS: LACTATED RINGERS 1,000 ML IV SCH ×3 (05:55→12:25)
[2019-11-25 06:11] LABS: Basophils # (A) 0.1 k/uL (0-0.2); Basophils % (A) 1 %; Eosinophils # (A) 0.2 k/uL (0-0.7); Eosinophils % (A) 2 %; HCT 33.8 % (34.0-46.0); HGB 10.8 gm/dL (11.4-16.0); Hypochromasia Slight; Lymphocytes # (A) 2.6 k/uL (1.0-4.8); Lymphocytes % (A) 28 %; MCH 24.6 pg (25.0-35.0); MCHC 31.9 g/dL (31.0-37.0); MCV 77.3 fL (80.0-100.0); Mean Platelet Volume 7.5; Monocytes # (A) 0.4 k/uL (0-1.0); Monocytes % (A) 4 %; Neutrophils # (A) 5.7 k/uL (1.3-7.7); Neutrophils % (A) 61 %; Platelet Count 251 k/uL (150-450); RBC 4.37 m/uL (3.80-5.40); RDW 15.2 % (11.5-15.5); WBC 9.3 k/uL (3.8-10.6)
[2019-11-25 06:17] VITALS: RESP 16
[2019-11-25] MEDS ORDERED: ROPIVACAINE 100 MG, fentaNYL (PF) 200 MCG in SODIUM CHLORIDE 0.9% 76 ML EPIDURAL ONE (12:21)
[2019-11-25] MEDS ORDERED: ZOLPIDEM 5 MG TAB PO PRN (13:44)
[2019-11-25] MEDS ORDERED: OXYTOCIN 20 UNITS/1000 ML NS 1,000 ML IV SCH (13:44)
[2019-11-25] MEDS ORDERED: HYDROCORTISONE 2.5% RECTAL CREAM 30 GM TUBE RECTAL PRN (13:44)
[2019-11-25] MEDS ORDERED: ACETAMINOPHEN TAB 325 MG TAB PO PRN (13:44)
[2019-11-25] MEDS ORDERED: BENZOCAINE/MENTHOL SPRAY 1 GM/SPRAY AEROSOL TOPICAL PRN (13:44)
[2019-11-25] MEDS ORDERED: SIMETHICONE 80 MG CHEWABLE PO PRN (13:44)
[2019-11-25] MEDS ORDERED: WITCH HAZEL 1 EACH MED..PAD TOPICAL PRN (13:44)
[2019-11-25] MEDS ORDERED: diphenhydrAMINE 50 MG/ML 1 ML VIAL IVP PRN (13:44)
[2019-11-25] MEDS ORDERED: BISACODYL 10 MG SUPP RECTAL PRN (13:44)
[2019-11-25] MEDS ORDERED: Rhogam IMMUNE GLOBULIN 1,500 UNIT/1 ML IM ONE (13:44)
[2019-11-25] MEDS ORDERED: LANOLIN CREAM 5 GM TUBE TOPICAL PRN (13:44)
[2019-11-25] MEDS ORDERED: diphenhydrAMINE 25 MG CAP PO PRN (13:44)
--- NOTE | 2019-11-25 13:55 | P.PROBDLV ---
Vaginal Delivery Note - . Vaginal Delivery Note: Normal vaginal delivery viable male infant Apgars 9 and 9 delivery time was 1252 hrs. Please see dictated H&P for intimate details of this patient's admission. Brief summary this is a pleasant 29-year-old 4 para 3 Estimated gestational age 37-2/7 weeks who is admitted to labor and delivery for severe intrauterine growth restriction. Patient is admitted, she is 2 cm dilated has artificial rupture membranes for clear fluid. Labor is induced with Pitocin per protocol. Patient's labor progresses she does get an epidural for pain control. She quickly gets to complete and with 1 push easily delivers 's head over the intact perineum. Mouth and nares are bulb suctioned. There is no evidence of a nuchal cord. The infant then spontaneously delivers the rest of the body without effort. Vigorous viable male infant Apgars are 9 and 9 delivery time was 1252 hrs. Inspection of the infant grossly shows some deep formation of the right thumb and hand., Otherwise grossly appears normal. [employer] will be alerted. With this done the umbilical cords doubly clamped and cut. Patient is a history of jaundice of delayed cord clamping was not done. We then have spontaneous delivery of the placenta intact. It is small but otherwise appears normal. The pathology. Inspection of perineum shows no lacerations or is no repair estimated blood loss is 50 mL. There are no complications. All counts correct 3.
[2019-11-25] MEDS: IBUPROFEN 600 MG TAB PO PRN (18:38)
[2019-11-25] MEDS: SENNOSIDES-DOCUSATE SODIUM 1 EACH TAB PO SCH (22:12)
--- NOTE | 2019-11-26 07:03 | P.PNOBGVD ---
Subjective - Subjective Patient reports: Reports appetite normal, Reports voiding normally, Reports pain well controlled, Reports ambulating normally : doing well Objective - Latest Vital Signs Latest vital signs: Vital Signs Temp Pulse Resp BP Pulse Ox 11/26/19 00:00 98.0 F 85 16 124/85 11/25/19 20:00 97.8 F 79 16 117/85 98 11/25/19 16:00 98.1 F 84 16 111/75 11/25/19 15:07 72 16 120/72 11/25/19 14:37 72 16 118/72 11/25/19 14:07 94 16 119/71 11/25/19 13:52 75 16 116/74 11/25/19 13:37 82 16 120/72 11/25/19 13:22 97.2 F L 85 16 123/68 11/25/19 13:07 94 16 114/65 Intake and Output 11/25/19 11/26/19 11/26/19 22:59 06:59 14:59 Output Total 50 Balance -50 Output: Estimated Blood Loss 50 Other: # Voids 1 - Exam Lungs: bilateral: normal Chest: Normal S1, Normal S2 Extremities: Present: normal Abdomen: Present: normal appearance, soft Uterus: Present: normal, firm Assessment and Plan Assessment: day #1. Patient is resting without complaints. Vital signs are stable she's afebrile. Uterus firm nontender she's having normal lochia. My impression this is a normal course. Patient is going to stay till tomorrow discharge home tomorrow morning. (1) 37 weeks gestation of Current Visit: No Status: Acute Code(s): Z3A.37 - 37 WEEKS GESTATION OF SNOMED Code(s): 20085514 (2) IUGR (intrauterine growth restriction) Current Visit: No Status: Acute Code(s): SIR0575 - SNOMED Code(s): 13616735 (3) Positive GBS test Current Visit: No Status: Acute Code(s): B95.1 - STREPTOCOCCUS, GROUP B, CAUSING DISEASES CLASSD [facility] SNOMED Code(s): 714700046
[2019-11-26] MEDS: SENNOSIDES-DOCUSATE SODIUM 1 EACH TAB PO SCH (08:43)
[2019-11-26] MEDS: IBUPROFEN 600 MG TAB PO PRN (19:22)
[2019-11-27] MEDS: SENNOSIDES-DOCUSATE SODIUM 1 EACH TAB PO SCH ×2 (02:02→08:04)
--- NOTE | 2019-11-27 06:48 | P.PNOBGVD ---
Subjective - Subjective Patient reports: Reports appetite normal, Reports voiding normally, Reports pain well controlled, Reports ambulating normally : doing well Objective - Latest Vital Signs Latest vital signs: Vital Signs Temp Pulse Resp BP 11/26/19 23:59 64 16 11/26/19 23:58 97.8 F 64 16 108/71 11/26/19 16:00 98.1 F 77 16 139/71 11/26/19 08:00 98.0 F 66 16 133/76 Intake and Output 11/26/19 11/26/19 11/27/19 14:59 22:59 06:59 Other: # Voids 2 2 1 - Exam Lungs: bilateral: normal Chest: Normal S1, Normal S2 Extremities: Present: normal Abdomen: Present: normal appearance, soft Uterus: Present: normal, firm Assessment and Plan Assessment: day #2. Patient is resting without complaints. Vital signs are stable she's afebrile. Uterus is firm nontender she's having normal lochia. My impression is a normal course. Plan is to continue routine care discharge home later today (1) 37 weeks gestation of Current Visit: No Status: Acute Code(s): Z3A.37 - 37 WEEKS GESTATION OF SNOMED Code(s): 71392375 (2) IUGR (intrauterine growth restriction) Current Visit: No Status: Acute Code(s): WEK2523 - SNOMED Code(s): 21025039 (3) Positive GBS test Current Visit: No Status: Acute Code(s): B95.1 - STREPTOCOCCUS, GROUP B, CAUSING DISEASES CLASSD [facility] SNOMED Code(s): 671335705
--- NOTE | 2019-11-27 06:56 | P.DS ---
Providers Date of admission: 11/25/19 05:35 Expected date of discharge: 11/27/19 Attending physician: Salomón Villanueva Primary care physician: Stated None - Discharge Diagnosis(es) (1) 37 weeks gestation of Current Visit: No Status: Acute (2) IUGR (intrauterine growth restriction) Current Visit: No Status: Acute (3) Positive GBS test Current Visit: No Status: Acute Hospital Course: Please see dictated H&P for intimate details of this patient's admission. Brief summary this pleasant 29-year-old 4 para 3 female 37-2/7 weeks gestation admitted to labor and delivery for induction of labor due to severe intrauterine growth restriction. Patient goes on have a vaginal delivery viable male infant. Please see dictated delivery note. Of note infant had a hand deformities right hand follow up with pediatrics. Post day #2 patient's felt stable for discharge home follow up with me in 6 weeks. Procedures: Induction of labor and normal vaginal delivery. Patient Condition at Discharge: Good Plan - Discharge Summary New Discharge Prescriptions: New Ibuprofen [Motrin] 600 mg PO Q6HR PRN #40 tab PRN Reason: Mild Pain Or Fever >= 100.5 No Action Koz-Yktv-Vnlgn Acid [-U Capsule (formulary)] 1 tab PO ONCE Discharge Medication List Ctq-Ipsz-Bsbsn Acid [-U Capsule (formulary)] 1 tab PO ONCE 10/29/19 [History] Ibuprofen [Motrin] 600 mg PO Q6HR PRN #40 tab 11/27/19 [Rx] Follow up Appointment(s)/Referral(s): Salomón Villanueva MD [STAFF PHYSICIAN] - 01/07/20 10:00 am Patient Instructions/Handouts: Vaginal Delivery (DC) Activity/Diet/Wound Care/Special Instructions: No intercourse or anything per vagina for 6 weeks. Please call if any fever, chills, excessive vaginal bleeding, and/or abdominal pain. Discharge Disposition: HOME SELF-CARE
[2019-11-27 08:06] VITALS: BP 118/67; PULSE 74; TEMP 97.9
== END 2019-11-27 10:49 | disposition home or self-care (01) | DRG 807 ==
LOC: 4FBP 05:35
PROVIDERS: ADMIT Obstetrics & Gynecology; ATTEND Obstetrics & Gynecology
DX: O36.5930 Maternal care for other known or suspected poor fetal growth, third trimester, not applicable or unspecified (principal); Z37.0 Single live birth; O99.824 Streptococcus B carrier state complicating childbirth; Z3A.37 37 weeks gestation of pregnancy; Z82.0 Family history of epilepsy and other diseases of the nervous system; Z82.49 Family history of ischemic heart disease and other diseases of the circulatory system; Z88.0 Allergy status to penicillin
CPT/HCPCS: 85025; 85461; 86850; 86870; 86880; 86900; 86901; 88307

== ENCOUNTER → 2020-03-02 | Outpatient (CLI) | payer OTHER ==
[2020-03-02 15:07] LABS: Anisocytosis Slight; Basophils % (A) 1 %; Eosinophils # (A) 0.2 k/uL (0-0.7); Eosinophils % (A) 2 %; HCT 38.4 % (34.0-46.0); HGB 11.8 gm/dL (11.4-16.0); Lymphocytes # (A) 1.8 k/uL (1.0-4.8); Lymphocytes % (A) 25 %; MCH 26.5 pg (25.0-35.0); MCHC 30.7 g/dL (31.0-37.0); MCV 86.3 fL (80.0-100.0); Mean Platelet Volume 7.7; Monocytes # (A) 0.4 k/uL (0-1.0); Monocytes % (A) 5 %; Neutrophils # (A) 4.8 k/uL (1.3-7.7); Neutrophils % (A) 65 %; Platelet Count 249 k/uL (150-450); RBC 4.45 m/uL (3.80-5.40); RDW 16.3 % (11.5-15.5); WBC 7.4 k/uL (3.8-10.6)
== END | disposition home or self-care (01) ==
LOC: LABPAT 13:39
PROVIDERS: ATTEND Obstetrics & Gynecology
DX: Z01.818 Encounter for other preprocedural examination (principal)
CPT/HCPCS: 36415; 85025

== ENCOUNTER 2020-03-10 06:12 | Day surgery (SDC) | payer OTHER ==
[2020-03-08 10:47] VITALS: BMI 23.3
--- NOTE | 2020-03-09 07:35 | P.HPOB ---
History of Present Illness H&P Date: 03/09/20 Chief Complaint: Requesting permanent sterilization This patient is a pleasant 29-year-old 4 para 4 female who presented for her visit in December and requested laparoscopic bilateral fallopian tube cauterization for permanent sterilization. I discussed various options of control with the patient and this is the method she has chosen. Past Medical History Past Medical History: No Reported History Additional Past Medical History / Comment(s): 4 previous vaginal deliveries. History of Any Multi-Drug Resistant Organisms: None Reported Past Surgical History: Appendectomy Additional Past Surgical History / Comment(s): EGD for possible esophageal dilatation. Past Anesthesia/Blood Transfusion Reactions: Previous Problems w/ Anesthesia Additional Past Anesthesia/Blood Transfusion Reaction / Comment(s): States with her Appendectomy had to have more sedation than usual. Past Psychological History: Anxiety, Depression Smoking Status: Never smoker Past Alcohol Use History: None Reported Past Drug Use History: None Reported - Past Family History Mother Family Medical History: Hypertension Son(s) Family Medical History: Seizure Disorder Medications and Allergies Home Medications Medication Instructions Recorded Confirmed Type Norethindrone-E.estradiol-Iron 1 each PO DAILY 03/08/20 03/08/20 History [Aurovela Fe 1.5 mg-30 Mcg Tab] Sertraline [Zoloft] 50 mg PO DAILY 03/08/20 03/08/20 History Allergies Allergy/AdvReac Type Severity Reaction Status Date / Time amoxicillin [Amoxicillin] Allergy Rash/Hives Verified 03/08/20 09:44 Penicillins Allergy Rash/Hives Verified 03/08/20 09:44 Exam - OBG Physical Exam Abdomen: bowel sounds normal, no diffuse tenderness, no bruit present, no guarding noted, no hepatomegaly, no splenomegaly, no mass Vulva: both: normal Vagina: normal moisture, no discharge Cervix: no lesion, no discharge Uterus: normal size, normal contour Assessment and Plan Assessment: This is a pleasant 29-year-old 4 para 4 female who presents for laparoscopic bilateral fallopian tube cauterization secondary to permanent sterilization. Patient I discussed various options for control and this is the method she has chosen. She understands at this procedure is considered permanent, however there is a failure rate of approximately 3-4 per thousand procedures done. She also understands that if she does become she has a 50% chance of a tubal or an ectopic . She understands laparoscopic surgery and apparently has risks including risks of infection, bleeding, possible injury to bowel, bladder, vessels, and/or other organs. She also understands this is considered elective and alternatives exist to the surgery. All the patient's questions are answered and a written consent is obtained. (1) Family planning Status: Acute Code(s): Z30.09 - ENCOUNTER FOR OTH GENERAL CNSL AND ADVICE ON CONTRACEPTION SNOMED Code(s): 848608534
[~2020-03-10 06:12] MED LIST: DEXAMETHASONE SOD PHOSPHATE 10 MG/ML 1 ML VIAL IV ONE; HYDROmorphone 0.5 MG/0.5 ML SYRINGE IVP PRN; ONDANSETRON 4 MG/2 ML VIAL IVP ONE; Pre Op ABX Message 1 EACH MISC MISCELLANE ONE
[2020-03-10] MEDS ORDERED: ONDANSETRON 4 MG/2 ML VIAL ONE (06:41)
[2020-03-10] MEDS: LACTATED RINGERS 1,000 ML IV SCH ×2 (06:47→07:27)
[2020-03-10] MEDS ORDERED: MIDAZOLAM 2 MG/2 ML VIAL ONE (07:23)
[2020-03-10] MEDS ORDERED: GLYCOPYRROLATE 0.2 MG/ML 2 ML VIAL ONE (07:23)
[2020-03-10] MEDS ORDERED: NEOSTIGMINE 1 MG/ML 10 ML VIAL ONE (07:23)
[2020-03-10] MEDS ORDERED: PROPOFOL 10 MG/ML 20 ML VIAL IV ONE (07:23)
[2020-03-10] MEDS ORDERED: SUCCINYLCHOLINE CHLORIDE 100 MG/5 ML SYR IV ONE (07:23)
[2020-03-10] MEDS ORDERED: ROCURONIUM BROMIDE 10 MG/ML 5 ML VIAL IV ONE (07:23)
[2020-03-10] MEDS ORDERED: KETOROLAC 30 MG/ML 1 ML VIAL ONE (07:23)
[2020-03-10] MEDS ORDERED: fentaNYL (PF) 50 MCG/ML 2 ML AMP ONE (07:23)
[2020-03-10] MEDS ORDERED: BUPIVACAINE (PF) 0.5% 30 ML VIAL SQ ONE (07:50)
--- NOTE | 2020-03-10 08:12 | P.OP ---
Date of Procedure: 03/10/20 Preoperative Diagnosis: Multi parity desires permanent sterilization Postoperative Diagnosis: Same Procedure(s) Performed: Laparoscopic bilateral fallopian tube cauterization Anesthesia: BRYANTA Surgeon: Salomón Villanueva Estimated Blood Loss (ml): 10 Urine output (ml): 25 Pathology: none sent Condition: stable Disposition: PACU Indications for Procedure: Please see dictated H&P for intimate details of this patient's admission. Brief summary this pleasant 29-year-old multigravida patient who has requested permanent sterilization for control. Operative Findings: This patient had a normal-appearing pelvis Description of Procedure: This patient is taken to the operating room where she is laid in the supine position. She subsequent undergoes general endotracheal anesthesia without incident. With an adequate level of anesthesia was placed in dorsal lithotomy position. She has a vaginal perineal abdominal prep and drape. Examination anesthesia shows a mid position uterus. I first good on below placed a speculum into the vagina. Allis clamp was attached to the anterior lip of the cervix large acorn cannula is gently placed in the endocervix. The speculum was removed and a red Feng catheter is placed into the bladder and it is loud stay in place. Then changed gloves go up above. Make a 10 mm infraumbilical incision through the patient's previous surgical site. Using a 10 mm bladed lists optical trocar I placed the trocar directly into the peritoneal cavity under visualization. Pneumoperitoneum was then created to 12 mm of carbon dioxide gas. Patient placed in Trendelenburg position. Approximately 2 finger breaths above the symphysis pubis a 5 mm incision is made. Using the bladed lists trocar I placed this trocar through the incision directly. Using blunt probe an oblique uterus tubes and ovaries all appear normal. Using bipolar cautery then grasped the left fallopian tube proximal 4 cm from its cornual insertion and a 2-3 cm segment of tube was completely cauterized. With this completed went to the right side with similar technique similar results. This done all appears hemostatic the lower trochars removed. The pneumoperitoneum is reduced. Incisions are then closed using a 4-0 Vicryl interrupted fashion. Steri-Strips sterile dressing applied and inject 5 mL of half percent Marcaine each incision site for postoperative pain control. Went on below remove the Allis and acorn cannula. All counts correct 3. There are no complications. Patient's week from anesthesia and taken recovery room in satisfactory condition.
[2020-03-10] MEDS ORDERED: Acetaminophen-Codeine 300-30mg TAB ONE (09:38)
[2020-03-11 08:38] VITALS: BP 116/78; PULSE 76; RESP 16; TEMP 97.9
== END 2020-03-10 10:25 | disposition home or self-care (01) ==
LOC: OR 06:12
PROVIDERS: ATTEND Obstetrics & Gynecology
DX: Z30.2 Encounter for sterilization (principal); F41.9 Anxiety disorder, unspecified; F32.9 Major depressive disorder, single episode, unspecified; Z88.0 Allergy status to penicillin; Z79.3 Long term (current) use of hormonal contraceptives; Z79.899 Other long term (current) drug therapy; Z90.49 Acquired absence of other specified parts of digestive tract; Z98.818 Other dental procedure status; Z82.49 Family history of ischemic heart disease and other diseases of the circulatory system; Z82.0 Family history of epilepsy and other diseases of the nervous system
CPT/HCPCS: 81025; 58670; J2250; J1100; J2710; J2405; J3010; J1885; J0330; J2704

== ENCOUNTER → 2023-03-04 | Outpatient (CLI) | payer OTHER ==
--- NOTE | 2023-03-06 07:44 | US ---
EXAMINATION TYPE: US transvaginal DATE OF EXAM: 03/04/2023 COMPARISON: NONE CLINICAL INDICATION: Female, 32 years old with history of N94.6 DYSMENORRHEA; Heavy menses with cramp ing. Tubal ligation TECHNIQUE: Transvaginal (TV). Date of LMP: 2 weeks ago EXAM MEASUREMENTS: Uterus: 9.7 x 4.8 x 6.0 cm Endometrial Stripe: 1.1 cm Right Ovary: 3.9 x 2.0 x 1.8 cm Left Ovary: 3.3 x 2.2 x 1.8 cm 1. Uterus: Anteverted WNL 2. Endometrium: wnl 3. Right Ovary: follicles noted 4. Left Ovary: follicles noted 5. Bilateral Adnexa: prominent vascularity right adnexa 6. Posterior cul-de-sac: wnl IMPRESSION: No significant abnormality appreciated.
== END | disposition home or self-care (01) ==
LOC: RADUSWWP 16:05
PROVIDERS: ATTEND Family Medicine
DX: N94.6 Dysmenorrhea, unspecified (principal)
CPT/HCPCS: 76830